=== PATIENT | male | born 1975 | race Two or more races ===

== ENCOUNTER 2017-01-11 03:27 | Emergency (ER) | payer BC ==
[~2017-01-11] VITALS: Ht 167.6 cm; Wt 68.0 kg
[2017-01-11] MEDS ORDERED: IV SET PRIMARY 1 EA INFUS.SET MC ONE (03:52)
[2017-01-11] MEDS ORDERED: ONDANSETRON HCL/PF 4 MG/2 ML VIAL ONE (03:52)
[2017-01-11] MEDS ORDERED: IV NS 0.9% 1,000 ML ONE (03:52)
[2017-01-11] MEDS ORDERED: HYDROMORPHONE 1 MG/1 ML DISP.SYRIN ONE ×2 (03:52→04:18)
[2017-01-11] MEDS ORDERED: HYDROMORPHONE INJ 2 MG/ML DISP.SYRIN IV ONE (04:00)
[2017-01-11] MEDS ORDERED: ONDANSETRON HCL/PF 4 MG/2 ML VIAL IVP ONE (04:00)
[2017-01-11 04:19] LABS: BASOPHILS # (AUTO) 0.1 /CMM (0.0-0.2); BASOPHILS % (AUTO) 0.5 % (0.0-2.0); DIFF TOTAL % 100 %; EOSINOPHILS # (AUTO) 0.7 /CMM (0.0-0.7); EOSINOPHILS % (AUTO) 6.1 % (0.0-6.0); HEMATOCRIT 46 % (39-51); HEMOGLOBIN 15.3 g/dL (13.5-17.5); LYMPHOCYTES # (AUTO) 5.4 /CMM (0.8-4.8); LYMPHOCYTES % (AUTO) 49.5 % (20.0-44.0); MEAN CORPUSCULAR HEMOGLOBIN 30 PG (26.0-33.0); MEAN CORPUSCULAR HGB CONC 33 g/dl (31.0-36.0); MEAN CORPUSCULAR VOLUME 90 fL (80-96); MONOCYTES % (AUTO) 9.2 % (2.0-12.0); NEUTROPHILS # (AUTO) 3.8 /CMM (1.8-8.9); NEUTROPHILS % (AUTO) 34.7 % (43.0-81.0); PLATELET COUNT (AUTO) 414 /CMM (150-450); RED BLOOD CELL COUNT(AUTO) 5.09 MIL/uL (4.5-6.0); WHITE BLOOD COUNT (AUTO) 10.9 K/uL (4.3-11.0)
[2017-01-11 04:22] LABS: POTASSIUM 3.5 mmol/L (3.5-5.1)
[2017-01-11] MEDS ORDERED: KETOROLAC TROMETHAMINE INJ 30 MG/ML VIAL ONE (04:22)
[2017-01-11 04:30] LABS: BILIRUBIN,TOTAL 0.3 mg/dL (0.2-1.0); INDIRECT BILIRUBIN 0.3 mg/dL (0.0-1.1); TOTAL PROTEIN, SERUM 8.3 g/dL (6.4-8.2)
[2017-01-11] MEDS ORDERED: HYDROMORPHONE 1 MG/1 ML DISP.SYRIN IV ONE (04:30)
[2017-01-11] MEDS ORDERED: KETOROLAC TROMETHAMINE INJ 30 MG/ML VIAL IV ONE (04:30)
[2017-01-11] MEDS ORDERED: IV NS 0.9% 1,000 ML BAG IV ONE (04:30)
[2017-01-11 04:46] LABS: INR 1.01 (0.87-1.13); PROTHROMBIN TIME 10.9 SECS (9.5-12.7)
[2017-01-11 05:55] VITALS: BP 140/73
== END 2017-01-11 05:57 | disposition home or self-care (01) ==
LOC: ER 03:30
DX: K80.20 Calculus of gallbladder without cholecystitis without obstruction (principal)
CPT/HCPCS: 36415; 76705; 80048; 80076; 83690; 85025; 85730; 96361; 96374; 96375; 99285; A4606; J1170 ×2; J1885; J2405; J7030; Z7610